=== PATIENT | male | born 1960 | race Caucasian/White ===

== ENCOUNTER → 2022-01-13 | Outpatient (CLI) | payer BC ==
[~2022-01-13] MED LIST: ASPI81EC; ATOR10; BUDE32NIS; CELE200; CEPH500 PO; INSULANPEN; Janumet PO; LEVSOD175; LEVSOD175 PO; LEVSOD75 PO; LORPSEER12; LOSA50; METF500; METF500 PO; MULVITMIND; Naprosyn500 MG PO; Prinivil10 MG PO; RANI150; ROSU10TA; ROSU10TA PO; Ultram50 MG PO
== END ==
LOC: LAB SHORT 16:40 → LAB 16:40
DX: E03.9 Hypothyroidism, unspecified (principal)
CPT/HCPCS: 84443